=== PATIENT | female | born 1955 | race Caucasian/White ===

== ENCOUNTER 2022-06-13 09:16 | Outpatient (CLI) | payer MEDICARE, MEDICAID | END 2022-06-13 23:59 | disposition home or self-care (01) | LOC: LAB 09:16 | PROVIDERS: ATTEND Specialist | DX: Z01.812 Encounter for preprocedural laboratory examination (principal); Z20.822 Contact with and (suspected) exposure to COVID-19 | CPT/HCPCS: U0003; C9803 ==